=== PATIENT | male | born 1935 | race Caucasian/White ===

== ENCOUNTER 2018-11-06 10:19 | Outpatient (CLI) | payer MEDICARE ==
[2018-11-14] MEDS ORDERED: ALLO100T30 PO (10:23)
[2018-11-14] MEDS ORDERED: TICA90TA PO (10:23)
[2018-11-14] MEDS ORDERED: CHOL2000 PO (10:23)
[2018-11-14] MEDS ORDERED: UBID100C24 PO (10:23)
[2018-11-14] MEDS ORDERED: TAMS0.4C2 PO (10:23)
[2018-11-14] MEDS ORDERED: AMLO-150 PO (10:23)
[2018-11-14] MEDS ORDERED: LOSA100T14 PO (10:23)
[2018-11-14] MEDS ORDERED: SODI650T PO (10:23)
[2018-11-14] MEDS ORDERED: WARF2TAB99 PO (10:23)
[2018-11-14] MEDS ORDERED: LACT1CAP4 PO (10:23)
[2018-11-14] MEDS ORDERED: MULT-658 PO (10:23)
[2018-11-14] MEDS ORDERED: WARF1TAB74 PO (10:23)
[2018-11-14] MEDS ORDERED: FINA5TAB4 PO (10:23)
[2018-11-14] MEDS ORDERED: ATOR10TA9 PO (10:23)
== END 2018-11-06 23:59 | disposition home or self-care (01) ==
LOC: RAD 10:19
PROVIDERS: ATTEND Internal Medicine Cardiovascular Disease
DX: K80.20 Calculus of gallbladder without cholecystitis without obstruction (principal); I70.0 Atherosclerosis of aorta; N28.9 Disorder of kidney and ureter, unspecified; J43.9 Emphysema, unspecified; N26.1 Atrophy of kidney (terminal); K57.30 Diverticulosis of large intestine without perforation or abscess without bleeding; I70.1 Atherosclerosis of renal artery; K76.9 Liver disease, unspecified; I25.10 Atherosclerotic heart disease of native coronary artery without angina pectoris
CPT/HCPCS: 71250; 74176; 94060; 94726; 94729